=== PATIENT | female | born 1950 | race Caucasian/White ===

== ENCOUNTER → 2017-01-30 | Outpatient (CLI) | payer MEDICARE, OTHER ==
--- OUTSIDE RECORDS SUMMARY | 2017-01-30 12:30 | XMS REPORT | Continuity of Care Document ---
Author Author [facility] Organization [facility] Address Unknown Phone Unavailable Care Team Providers Care Survey Operations Director Name Role Phone Stacy Cid PCP [phone] Source Comments Some departments are not documenting in the electronic medical record. If you do not see the information that you expected, contact Release of Information in the Health Information Management department at [phone] for further assistance in locating additional records.[facility] Active Allergies and Adverse Reactions Allergen Noted Date Severity Reactions Comments Mold 08/22/2011 HIVES, RHINORRHEA, SHORTNESS OF BREATH, EDEMA Shellfish Containing 08/22/2011 HIVES, RHINORRHEA, Products SHORTNESS OF BREATH, EDEMA Current Medications Prescription Sig. Disp. Refills Start End Date Status Date rosuvastatin (CRESTOR) 10 Take 10 mg by mouth Active mg PO tablet daily. atenolol (TENORMIN) 25 mg Take 25 mg by mouth Active PO tablet daily. ASCORBATE CALCIUM Take by mouth. Active (VITAMIN C PO) MULTIVITAMIN (MULTIPLE Take by mouth. Active VITAMIN PO) meloxicam(+) (MOBIC) 7.5 Take 7.5 mg by mouth as Active mg PO tablet Needed. risedronate(+) (ACTONEL) Take 35 mg by mouth every Active 35 mg PO tablet 7 days. ERGOCALCIFEROL (VITAMIN Take 50,000 Units by Active D2) (VITAMIN D PO) mouth every 7 days. diphenhydrAMINE Take 25 mg by mouth every Active (BENADRYL) 25 mg PO 6 hours as needed. capsule budesonide/formoterol(+) Inhale 2 Puffs by mouth Active (SYMBICORT) 160/4.5 mcg twice daily. IN HFAA inhalation LEVALBUTEROL HCL (XOPENEX Inhale by mouth. Active IN) other medication 1 Dose. Pt states she Active takes "elations drink." other medication 1 Dose. Black Currant Active Seed Oil Active Problems Problem Noted Date Left breast Dermatitis-surgical 12/20/2010 Overview: DIAGNOSIS: Left breast localized skin lymphedema HISTORY: Odalys is a 60 year old female who was referred to clinic in August of 2011 for evaluation of a reddened edematous area of skin of the medial Left breast. She first noticed this at the end of December 2010 and shortly there after began experiencing the sensation of breast fullness and a "zapping" pain that radiated throughout the breast. This pain was non-localized and dispersed throughout the breast. This occurred twice daily and occurred everyday until early summer when she experienced a short duration of relief of symptoms. The fullness was constant and persists even today. She presented to her primary care physician in January and 01/30/11 a mammogram and sonogram were performed. These were both unremarkable. As the symptoms persisted she was referred to a surgeon on 03/26/11 and a punch biopsy of the right breast at the center of the redness was performed. The results revealed vascular ectasia, perivascular dermatitis, and focal interface dermatitis. After a brief period of symptom relief she began to experience the symptoms once again 07/2011. This was followed with similar symptoms of pain in the right breast without the erythema, and a recurrence of zoster symptom of the right lower thoracic region with sharp radiant pain from posterior to anterior. She was seen here and prescribed black current oil for treatment and since that time she has near total resolution all of her symptoms. Her zoster infection sxs resolved with anti-viral treatment. We had the skin biopsy slides reviewed here by our Dermatopathologist, Dr. Smallwood, and he reported just localized lymphedema. FAMILY HISTORY: Paternal grandmother- Breast cancer, Mother- Heart disease, Father- Heart disease, Sister x 2- HTN/DM, BARREL BUNG REMOVER AND DUMPER HISTORY: MC 1 FLB 21, Menarche 12 irregular, Menopause 48. Social History Tobacco Use Types Packs/Day Years Used Date Former Smoker Cigarettes 0.5 10 Quit: 11/19/1977 Smokeless Tobacco: Never Used Alcohol Use Drinks/Week oz/Week Comments Yes 4 Glasses of 2.4 wine Last Filed Vital Signs Vital Sign Reading Time Taken Blood Pressure 143/79 12/12/2011 1:03 PM RUG SHAMPOOER Pulse 76 12/12/2011 1:03 PM RUG SHAMPOOER Temperature 36.5 C (97.7 F) 12/12/2011 1:03 PM RUG SHAMPOOER Respiratory Rate - - Height 1.607 m (5' 3.25") 12/12/2011 1:03 PM RUG SHAMPOOER Weight 82.736 kg (182 lb 6.4 oz) 12/12/2011 1:03 PM RUG SHAMPOOER Body Mass Index 32.04 12/12/2011 1:03 PM RUG SHAMPOOER Oxygen Saturation - - Plan of Care Health Maintenance Due Date Last Done Comments Physical (Comprehensive) 1955 Exam Pertussis Vaccine 1959 Tetanus Vaccine 1965 Colorectal Cancer 1998 Screening Shingles Vaccine 2008 Breast Cancer Screening 08/22/2013 08/22/2011 Osteoporosis Screening 2013 Prevnar/Pneumovax (#1) 2013 Influenza Vaccine 07/20/2016 Results from Last 3 Months Not on file
--- NOTE | 2017-02-01 19:20 | Diagnostic Imaging Report ---
Bilateral screening mammogram. The current study was also evaluated with a Computer Aided Detection (CAD) system. INDICATION: Screening. No current complaints stated on the questionnaire. COMPARISON: 01/18/16. FINDINGS: The breasts are composed of scattered fibroglandular densities. There are benign-appearing calcifications seen. Allowing for technique and positional differences, no suspicious change is seen. IMPRESSION: No significant change. ACR BI-RADS Category 2: Benign findings. Result letter will be mailed to the patient. Note: At least 10% of breast cancer is not imaged by mammography. Dictated by: Dictated on workstation # [id number]
== END ==
LOC: RAD 12:28
PROVIDERS: ATTEND Internal Medicine
DX: Z12.31 Encounter for screening mammogram for malignant neoplasm of breast (principal)
CPT/HCPCS: 77067

== ENCOUNTER → 2017-05-18 | Outpatient (CLI) | payer MEDICARE, OTHER ==
--- NOTE | 2017-05-18 11:38 | Diagnostic Imaging Report ---
PROCEDURE: US Gallbladder. TECHNIQUE: Multiple real-time grayscale images were obtained over the right upper quadrant in various projections. INDICATION: Right upper quadrant pain. FINDINGS: The pancreas is obscured by bowel gas. The liver is fairly homogeneous but is hyperechoic and slightly attenuates the ultrasound beam. It is also slightly prominent in size measuring 18 CM in craniocaudad dimension. The portal vein has hepatopetal direction of flow. The gallbladder demonstrates a 7 mm hypoechoic structure along its wall suggestive of a polyp. There is no wall thickening or pericholecystic fluid. The CBD is 6 mm in caliber. The right kidney is 10.7 CM in length with no hydronephrosis or focal lesion. Sonographic Reyes sign is reportedly negative. IMPRESSION: 1. The liver size is at the upper limits of normal with suggestion of a fatty infiltration. 2. A 7 mm hyperechoic focus along the gallbladder wall is likely related to a polyp. Dictated by: Dictated on workstation # [id number]
== END ==
LOC: RAD 10:43
PROVIDERS: ATTEND Nurse Practitioner Family
DX: K87 Disorders of gallbladder, biliary tract and pancreas in diseases classified elsewhere (principal); R10.11 Right upper quadrant pain
CPT/HCPCS: 76705

== ENCOUNTER 2017-11-24 06:01 | Emergency (ER) | payer MEDICARE, OTHER ==
[~2017-11-24] VITALS: Ht 160 cm; Wt 77.1 kg
[2017-11-24] MEDS ORDERED: ROSU5TAB (06:23)
[2017-11-24] MEDS ORDERED: ALBU18HF2 (06:23)
[2017-11-24] MEDS ORDERED: BUDE10.2 (06:23)
[2017-11-24] MEDS ORDERED: METO-370 (06:23)
[2017-11-24 06:50] LABS: BASOPHILS % (AUTO) 0 % (0-10); EOSINOPHILS # (AUTO) 0.2 10^3/uL (0.0-0.3); EOSINOPHILS % (AUTO) 2 % (0-10); HEMATOCRIT 39 % (35-52); HEMOGLOBIN 13.6 G/DL (11.5-16.0); LYMPHOCYTES % (AUTO) 12 % (12-44); MEAN CORPUSCULAR HEMOGLOBIN 30 PG (25-34); MEAN CORPUSCULAR HGB CONC 35 G/DL (32-36); MEAN CORPUSCULAR VOLUME 86 FL (80-99); MEAN PLATELET VOLUME 8.8 FL (7.4-10.4); MONOCYTES # (AUTO) 0.6 X 10^3 (0.0-1.0); MONOCYTES % (AUTO) 6 % (0-12); NEUTROPHILS # (AUTO) 7.1 X 10^3 (1.8-7.8); NEUTROPHILS % (AUTO) 80 % (42-75); PLATELET COUNT 270 10^3/uL (130-400); RED BLOOD COUNT 4.48 10^6/uL (4.35-5.85); RED CELL DISTRIBUTION WIDTH 12.6 % (10.0-14.5); WHITE BLOOD COUNT 8.9 10^3/uL (4.3-11.0)
--- NOTE | 2017-11-24 06:57 | Diagnostic Imaging Report ---
INDICATION: Cough and congestion x5 days. TECHNIQUE: Single view chest 6:46 AM. CORRELATION STUDY: 02/20/2011 FINDINGS: The heart size, mediastinal configuration and pulmonary vascularity are within normal limits. The lungs are clear with no consolidating infiltrate. There is no significant effusion or pneumothorax. IMPRESSION: 1. Stable, negative portable chest. Dictated by: Dictated on workstation # [id number]
--- NOTE | 2017-11-24 07:13 | ED Cough/URI ---
General Chief Complaint: Cough/Cold/Flu Symptoms Stated Complaint: SOB,COUGHING,RUNNY NOSE Nursing Triage Note: PATIENT REPORTS COUGH SINCE SUNDAY, WITH FEVER STARTING THIS MORNING. PATIENT TOOK A TYLENOL ABOUT 0500 Source: patient Exam Limitations: no limitations History of Present Illness Time seen by provider: 07:09 Initial Comments The patient is a 67-year-old white female who presents with a complaint of harsh cough, fever, rhinitis since Sunday. She is concerned this is getting worse. She is slightly short of breath Timing/Duration: week, getting worse Severity/Quality: severe, productive cough Allergies and Home Medications Allergies Coded Allergies: Sulfa (Sulfonamide Antibiotics) (Verified Allergy, Unknown, 11/24/17) Home Medications Albuterol Sulfate 18 Gm Hfa.aer.ad, (Reported) Budesonide/Formoterol Fumarate 10.2 Gm Hfa.aer.ad, (Reported) Metoprolol Succinate 50 Mg Tab.er.24h, (Reported) Rosuvastatin Calcium 5 Mg Tablet, (Reported) Constitutional: see HPI EENTM: nose congestion Respiratory: cough, dyspnea on exertion, phlegm Cardiovascular: no symptoms reported Gastrointestinal: no symptoms reported Genitourinary: no symptoms reported Musculoskeletal: no symptoms reported Skin: no symptoms reported Psychiatric/Neurological: No Symptoms Reported Hematologic/Lymphatic: No Symptoms Reported Immunological/Allergic: no symptoms reported Past Vowsbmz-Kpdjve-Rfojwr Hx Patient Social History Alcohol Use: Denies Use Recreational Drug Use: No Smoking Status: Never a Smoker Recent Foreign Travel: No Contact w/Someone Who Travel: No Recent Infectious Disease Expo: No Physical Abuse: No Sexual Abuse: No Surgeries History of Surgeries: Yes (BACK, R KNEE, BREAST BIOPSY, COLON RESECTION) Surgeries: Adenoidectomy, Orthopedic, Tonsillectomy Respiratory History of Respiratory Disorde: Yes Respiratory Disorders: Asthma Cardiovascular History of Cardiac Disorders: Yes Cardiac Disorders: High Cholesterol, Hypertension Neurological History of Neurological Disord: No Genitourinary History of Genitourinary Disor: No Gastrointestinal History of Gastrointestinal Di: No Musculoskeletal History of Musculoskeletal Dis: No Endocrine History of Endocrine Disorders: No HEENT History of HEENT Disorders: No Cancer History of Cancer: No Psychosocial History of Psychiatric Problem: No Suicide Risk Score: 0 Blood Transfusions History of Blood Disorders: No Physical Exam Vital Signs Vital Sign - Last 12Hours 11/24/17 06:20 Temp 100.0 Pulse 95 Resp 18 B/P (MAP) 134/80 (98) Pulse Ox 94 Capillary Refill : Less Than 3 Seconds General Appearance: mild distress Eyes: Bilateral Eye Normal Inspection HEENT: normal ENT inspection Neck: non-tender Respiratory: chest non-tender, lungs clear, normal breath sounds, no respiratory distress, no accessory muscle use, respiratory distress Cardiovascular: normal peripheral pulses, regular rate, rhythm, no edema, no gallop, no JVD, no murmur Gastrointestinal: normal bowel sounds Extremities: normal range of motion, non-tender, normal inspection, no pedal edema, no calf tenderness, normal capillary refill, pelvis stable Neurologic/Psychiatric: 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 Skin: normal color Lymphatic: no adenopathy, axilla node tender (R), axilla node tender (L), inguinal node tender (R), inguinal node tender (L) Progress/Results/Core Measures Suspected Sepsis Recent Fever Within 48 Hours: No Infection Criteria Present: None New/Unexplained Altered Menta: No Sepsis Screen: No Definite Risk Sepsis Diagnosis: SIRS Temperature:100.0 Pulse: 95 Respiratory Rate: 18 Laboratory Tests 11/24/17 06:40: White Blood Count 8.9 Blood Pressure 134 /80 Mean: 98 Laboratory Tests 11/24/17 06:40: Creatinine 0.99, Platelet Count 270, Total Bilirubin 0.3 Results/Orders Lab Results Laboratory Tests Test 11/24/17 06:40 Range/Units White Blood Count 8.9 4.3-11.0 10^3/uL Red Blood Count 4.48 4.35-5.85 10^6/uL Hemoglobin 13.6 11.5-16.0 G/DL Hematocrit 39 35-52 % Mean Corpuscular Volume 86 80-99 FL Mean Corpuscular Hemoglobin 30 25-34 PG Mean Corpuscular Hemoglobin Concent 35 32-36 G/DL Red Cell Distribution Width 12.6 10.0-14.5 % Platelet Count 270 130-400 10^3/uL Mean Platelet Volume 8.8 7.4-10.4 FL Neutrophils (%) (Auto) 80 H 42-75 % Lymphocytes (%) (Auto) 12 12-44 % Monocytes (%) (Auto) 6 0-12 % Eosinophils (%) (Auto) 2 0-10 % Basophils (%) (Auto) 0 0-10 % Neutrophils # (Auto) 7.1 1.8-7.8 X 10^3 Lymphocytes # (Auto) 1.0 1.0-4.0 X 10^3 Monocytes # (Auto) 0.6 0.0-1.0 X 10^3 Eosinophils # (Auto) 0.2 0.0-0.3 10^3/uL Basophils # (Auto) 0.0 0.0-0.1 10^3/uL Sodium Level 138 135-145 MMOL/L Potassium Level 4.3 3.6-5.0 MMOL/L Chloride Level 105 98-107 MMOL/L Carbon Dioxide Level 23 21-32 MMOL/L Anion Gap 10 5-14 MMOL/L Blood Urea Nitrogen 16 7-18 MG/DL Creatinine 0.99 0.60-1.30 MG/DL Estimat Glomerular Filtration Rate 56 BUN/Creatinine Ratio 16 Glucose Level 111 H 70-105 MG/DL Calcium Level 9.0 8.5-10.1 MG/DL Total Bilirubin 0.3 0.1-1.0 MG/DL Aspartate Amino Transf (AST/SGOT) 28 5-34 U/L Alanine Aminotransferase (ALT/SGPT) 34 0-55 U/L Alkaline Phosphatase 82 40-136 U/L Total Protein 7.0 6.4-8.2 GM/DL Albumin 4.1 3.2-4.5 GM/DL My Orders Orders - JENA PALACIOS MD Cbc No Diff (11/24/17 06:33) Cbc With Automated Diff (11/24/17 06:33) Comprehensive Metabolic Panel (11/24/17 06:33) Chest 1 View, Ap/Pa Only (11/24/17 06:33) Vital Signs/I&O Vital Sign - Last 12Hours 11/24/17 06:20 Temp 100.0 Pulse 95 Resp 18 B/P (MAP) 134/80 (98) Pulse Ox 94 Capillary Refill : Less Than 3 Seconds Blood Pressure Mean: 98 Departure Impression Impression: Primary Impression: Influenza-like symptoms Disposition: 01 HOME, SELF-CARE Condition: Stable/Unchanged Departure-Patient Inst. Decision time for Depature: 07:22 Referrals: SANKET CHAN MD (PCP/Family) Primary Care Physician Patient Instructions: Flu, Adult (DC) Add. Discharge Instructions: All discharge instructions reviewed with patient and/or family. Voiced understanding. Treatment is empiric. Lots of liquids and fruit juices. Extra rest. Nasal steroid may be useful. A prescription for Phenergan with codeine has been provided. Scripts Codeine Phosphate/Guaifenesin (Guaifen-Codeine 200-20 mg/10Ml) 10 Ml Liquid 10 ML PO QID, #200 EA Prov: JENA PALACIOS MD 11/24/17 JENA PALACIOS MD Nov 24, 2017 07:13
[2017-11-24 07:18] LABS: ALBUMIN 4.1 GM/DL (3.2-4.5); BILIRUBIN,TOTAL 0.3 MG/DL (0.1-1.0); CREATININE SERUM 0.99 MG/DL (0.60-1.30); POTASSIUM 4.3 MMOL/L (3.6-5.0)
[2017-11-24] MEDS ORDERED: CODE10LI PO (07:25)
[2017-11-24 07:42] VITALS: BP 134/80
== END 2017-11-24 07:42 | disposition home or self-care (01) ==
LOC: EDUNIT# 06:01 → ER 06:03
DX: J11.1 Influenza due to unidentified influenza virus with other respiratory manifestations (principal); E78.00 Pure hypercholesterolemia, unspecified; I10 Essential (primary) hypertension; J45.909 Unspecified asthma, uncomplicated; Z90.89 Acquired absence of other organs
CPT/HCPCS: 36415; 71045; 80053; 85025; 85027; 99282

== ENCOUNTER → 2018-03-04 | Outpatient (CLI) | payer MEDICARE, OTHER ==
[~2018-03-04] MED LIST: ALBU18HF2; BUDE10.2; CODE10LI PO; METO-370; ROSU5TAB
--- NOTE | 2018-03-04 12:21 | Diagnostic Imaging Report ---
INDICATION: Routine screening. COMPARISON: 01/30/2017 and 01/18/2016. TECHNIQUE: Screening digital mammography was performed bilaterally with a Computer Aided Detection (CAD) system. 3D tomographic images were obtained and reviewed. FINDINGS: Scattered fibroglandular densities are identified bilaterally. No dominant mass or malignant-appearing microcalcifications are seen. Benign calcification in the lower inner right breast is again noted. The axillae are unremarkable. IMPRESSION: No mammographic features suspicious for malignancy are identified. ACR BI-RADS Category 2: Benign findings. Result letter will be mailed to the patient. Note: At least 10% of breast cancer is not imaged by mammography. Dictated by: Dictated on workstation # [id number]
== END ==
LOC: RAD 10:29
PROVIDERS: ATTEND Internal Medicine
DX: Z12.31 Encounter for screening mammogram for malignant neoplasm of breast (principal)
CPT/HCPCS: 77067

== ENCOUNTER → 2019-03-11 | Outpatient (CLI) | payer MEDICARE, OTHER ==
--- NOTE | 2019-03-11 12:54 | Diagnostic Imaging Report ---
INDICATION: Routine screening. Comparison is made with prior mammogram from 03/04/2018 and 01/30/2017. 2-D and 3-D bilateral screening mammography was performed with a Computer Aided Detection (CAD) system. FINDINGS: Scattered fibroglandular densities are identified bilaterally. The parenchymal pattern is stable. No mass or malignant appearing microcalcifications are seen. Axillae are unremarkable. There are benign calcifications. IMPRESSION: No mammographic features suspicious for malignancy are identified. ACR BI-RADS Category 2: Benign findings. Result letter will be mailed to the patient. Note: At least 10% of breast cancer is not imaged by mammography. Dictated by: Dictated on workstation # [id number]
== END ==
LOC: RAD 10:00
PROVIDERS: ATTEND Internal Medicine
DX: Z12.31 Encounter for screening mammogram for malignant neoplasm of breast (principal)
CPT/HCPCS: 77067

== ENCOUNTER 2019-07-07 05:47 | Outpatient (CLI) | payer MEDICARE, OTHER ==
[~2019-07-07] VITALS: Ht 160 cm; Wt 80.7 kg
[~2019-07-07 05:47] MED LIST changes: -ALBU18HF2; +ALBU18HF2 IH; -BUDE10.2; +BUDE10.2 IH; -METO-370; +METO-370 PO; -ROSU5TAB; +ROSU5TAB PO
[2019-07-07] MEDS ORDERED: CA C PO (12:33)
[2019-07-07] MEDS ORDERED: UBID200C16 PO (12:33)
[2019-07-07] MEDS ORDERED: DIPH25CA79 PO (12:33)
[2019-07-07] MEDS ORDERED: LORA10TA76 PO (12:33)
== END 2019-07-07 12:35 | disposition home or self-care (01) ==
LOC: PREOP 05:47
PROVIDERS: ATTEND Internal Medicine
DX: Z01.818 Encounter for other preprocedural examination (principal)

== ENCOUNTER 2019-07-11 07:19 | Day surgery (SDC) | payer MEDICARE, OTHER ==
[~2019-07-11] VITALS: Ht 160 cm; Wt 80.7 kg
[2019-07-11] VITALS (10 sets, daily range): BP systolic 137–178; BP diastolic 67–84
[~2019-07-11 07:19] MED LIST changes: +CA C PO; +DIPH25CA79 PO; +LORA10TA76 PO; +UBID200C16 PO
[2019-07-11] MEDS ORDERED: D5 LR IV SOLUTION 1,000 ML IV STA (07:24)
[2019-07-11] MEDS ORDERED: fentaNYL INJECTION 100 MCG/2 ML AMP IVP ONE (07:30)
[2019-07-11] MEDS ORDERED: MIDAZOLAM 2 MG/2 ML (VERSED) VIAL IVP ONE (07:30)
[2019-07-11] MEDS ORDERED: LIDOCAINE JELLY 2% 6 ML SYRINGE MM PRN (07:30)
[2019-07-11] MEDS ORDERED: LIDOCAINE JELLY 2% 6 ML SYRINGE ONE (07:50)
[2019-07-11] MEDS ORDERED: fentaNYL INJECTION 100 MCG/2 ML AMP ONE (07:50)
[2019-07-11] MEDS ORDERED: MIDAZOLAM 2 MG/2 ML (VERSED) VIAL ONE ×2 (07:51)
--- NOTE | 2019-07-11 08:01 | Pre-Op Note & Conscious Sedat ---
Pre-Operative Progress Note H&P Reviewed The H&P was reviewed, patient examined and no changes noted. Date H&P Reviewed: Jul 11, 2019 Time H&P Reviewed: 07:45 Conscious Sedation Pre-Proced ASA Score 2 For ASA 3 and 4: Consider anesthesia and medical clearance. Also, for patients with a history of failed moderate sedation consider anesthesia. Airway Lungs Heart ASA score ASA 1: a normal healthy patient ASA 2: a patient with a mild systemic disease (mid diabetes, controlled hypertension, obesity ASA 3: a patient with a severe systemic disease that limits activity (angina, COPD, prior Myocardial infarction) ASA 4: a patient with an incapacitating disease that is a constant threat to life (CHF, renal failure) ASA 5: a moribund patient not expected to survive 24 hrs. (ruptured aneurysm) ASA 6: a declared brain- patient whose organs are being harvested. For emergent operations, add the letter E after the classification Mallampati Classification Grade 2 Sedation Plan Analgesia, Amnesia, Plan communicated to team members, Discussed options with patient/fam, Discussed risks with patient/fam The patient is an appropriate candidate to undergo the planned procedure, sedation, and anesthesia. The patient immediately re-assessed prior to indication. SANKET CHAN MD Jul 11, 2019 08:01
--- NOTE | 2019-07-11 15:04 | OPERATIVE REPORT ---
DATE OF SERVICE: 07/11/2019 COLONOSCOPY SUMMARY INDICATION FOR THE PROCEDURE: Screening colonoscopy. The patient was placed in the left lateral decubitus position. Prior to undergoing colonoscopy, digital rectal evaluation was performed. Anal sphincter tone was normal and the perianal reflex was intact. No abnormalities were noted on digital inspection of the anal canal or distal rectal vault. The colonoscope was then inserted into the rectum and under direct visualization advanced to the cecum. The cecum was identified by identification of the ileocecal valve and cecal strap. Photographic documentation was obtained. A careful inspection was made as the colonoscope was withdrawn. Quality of the prep was good. FINDINGS: There was no evidence for internal or external hemorrhoids and the rectum was unremarkable except for one small 2 mm sessile polyp that was photographed and biopsied and ablated with minimal blood loss. Small to medium size diverticulum were scattered throughout the colon, most notable in the sigmoid colon and a previous anastomotic margin noted in the distal sigmoid colon is present and intact unremarkable. Other than scattered diverticula in the descending colon, transverse colon, ascending colon and cecum were unremarkable. ASSESSMENT: Diminutive polyp was removed from the proximal rectum with no other evidence for neoplasia. Mild to moderate diverticular disease persists, scattered throughout the colon with no evidence for diverticulitis. I would advocate consideration for repeat surveillance colonoscopy in 10 years as long as there are no surprises on histopathology report. Job ID: [id number] DocumentID: [id number] Dictated Date: 07/11/2019 11:09:20 Publications Editor Date: 07/11/2019 15:02:29 Dictated By: SANKET CHAN MD
--- NOTE | 2019-07-16 14:53 | HISTORY AND PHYSICAL ---
DATE OF SERVICE: 07/11/2019 COLONOSCOPY HISTORY AND PHYSICAL HISTORY OF PRESENT ILLNESS: The patient is a 68-year-old white female who was seen in followup of allergic rhinitis and asthma on 06/12/2019. She reports that course of prednisone helped her asthma out significantly. She has been off it for the last several weeks and asthma and allergic symptoms have been under reasonable control. When she went to [place], she was stepping off the plane, she noted improvement in her symptoms with exacerbation as soon as she got back, but symptoms have been under reasonable control. She will use her rescue inhaler once daily and continuous steroid inhaler use on a regular basis with tolerable symptoms. She is also on Claritin. She noted that she had one previous colonoscopy, but it was likely 14 years ago around 2004. She did not have any polyps noted. She is not aware of any family history for colon cancer or colon polyps. PHYSICAL EXAMINATION: GENERAL: Revealed a white female who did not appear to be in acute distress. VITAL SIGNS: Weight was down 3.2 pounds from six weeks ago. Blood pressure 142/80. HEENT: Unremarkable. Sclerae nonicteric. She has a Mallampati class 2 pharyngeal configuration. CHEST: Clear to auscultation. CARDIOVASCULAR: Reveals a regular rate and rhythm without murmur, S3 or S4. ABDOMEN: Soft, supple without mass, organomegaly or tenderness. EXTREMITIES: Reveal no cyanosis, clubbing or edema. ASSESSMENT AND PLAN: 1. Allergic rhinitis as well as asthma with strong allergic component under reasonable control. Discussed that suspect graft/weed pollens were likely a biggest factor. We will continue current antihistamine and anti-inflammatory inhalational therapy. 2. Rationale for repeat screening colonoscopy was discussed. The patient was set up for the July 11. 3. Prep instructions for the Craft-prep kit were given and questions were answered. We will have the patient to follow up in 4 months and give flu shot at that time. Job ID: [id number] DocumentID: [id number] Dictated Date: 06/12/2019 11:06:28 Keying Machine Operator Date: 06/12/2019 11:19:24 Dictated By: SANKET CHAN MD <Dictated by SANKET CHAN MD> <Electronically signed by SANKET CHAN MD> 06/12/19 [id number]
== END 2019-07-11 09:30 | disposition home or self-care (01) ==
LOC: ENDO 07:19
PROVIDERS: ATTEND Internal Medicine
DX: Z12.11 Encounter for screening for malignant neoplasm of colon (principal); D12.8 Benign neoplasm of rectum; K57.30 Diverticulosis of large intestine without perforation or abscess without bleeding; J45.909 Unspecified asthma, uncomplicated; Z98.0 Intestinal bypass and anastomosis status; Z88.2 Allergy status to sulfonamides; Z79.899 Other long term (current) drug therapy
CPT/HCPCS: 88305

== ENCOUNTER → 2020-04-06 | Outpatient (CLI) | payer MEDICARE, OTHER ==
[~2020-04-06] MED LIST changes: -METO-370 PO; +METO50TA7 PO
--- NOTE | 2020-04-06 12:33 | Diagnostic Imaging Report ---
INDICATION: Routine screening. COMPARISON: 03/11/2019 and 03/04/2018. TECHNIQUE: 2D and 3D bilateral screening mammography was performed with CAD. FINDINGS: Scattered fibroglandular densities are identified bilaterally. There are benign calcifications in both breasts. No mass or malignant appearing microcalcifications are seen. The axillae are unremarkable. IMPRESSION: No mammographic features suspicious for malignancy are identified. ACR BI-RADS Category 2: Benign findings. Result letter will be mailed to the patient. Note: At least 10% of breast cancer is not imaged by mammography. Dictated by: Dictated on workstation # [id number]
== END ==
LOC: RAD 09:04
PROVIDERS: ATTEND Internal Medicine
DX: Z12.31 Encounter for screening mammogram for malignant neoplasm of breast (principal)
CPT/HCPCS: 77063; 77067

== ENCOUNTER 2020-11-23 22:45 | Emergency (ER) | payer MEDICARE, OTHER ==
[~2020-11-23] VITALS: Ht 162.6 cm; Wt 80.9 kg
[2020-11-23] MEDS ORDERED: ORPHENADRINE 60 MG/2 ML (NORFLEX) AMP (ED ONLY) IM ONE (23:45)
[2020-11-23] MEDS ORDERED: KETOROLAC 30 MG/ML VIAL IM ONE (23:45)
--- NOTE | 2020-11-23 23:51 | ED Neck-Back Pain/Injury ---
General Chief Complaint: Head/Cervical Problems Stated Complaint: NECK PAIN Nursing Triage Note: PT AMBULATES TO ROOM #5 WITH C/O L SUPERIOR NECK DISCOMFORT. DESCRIBES DISCOMFORT "SPASMS." REPORTS HEADACHE ON THIS DAY THAT WAS RELIEVED BY TYLENOL. DENIES FEVER OR CHILLS. A&OX4. Nursing Sepsis Screen: No Definite Risk Source of Information: Patient Exam Limitations: No Limitations History of Present Illness Date Seen by Provider: Nov 23, 2020 Time Seen by Provider: 23:35 Initial Comments Patient is a 70-year-old female who presents to the emergency department today with a chief complaint of occipital headache and some neck pain. Patient states that she had neck pain about 3 weeks ago after she slept wrong. She states after 3 or 4 days of using heat and ice, the pain subsided on its own. Patient states that she awoke with similar symptoms this morning. She states it hurts when she turns her head to the left. Patient points to the area of the suboccipital region as well as mid paraspinous musculature. Patient also states that the headache went away with some Tylenol early this morning but came back about mid afternoon. She denies any vision changes speech difficulties unilateral numbness, weakness or tingling. Patient denies any recent febrile illnesses, cough, congestion, URI symptoms or Covid complaints. No GI or concerns. Patient states she always has a little bit of swelling in her lower extremities at the end of the day. This is not unusual for her. Patient states that she was recently taken off of her antihypertensive medic ations but she still has them at home. She states she was placed on medication for Lexapro for anxiety and this seemed to alleviate her need for antihypertensives. She checked her blood pressure off and on for 2 to 3 weeks after coming off the Lexapro and it stayed down however today her blood pressure is up in the 190 systolic range. She believes this is due to the pain in her neck. All other review of systems reviewed and negative except as stated above. Location: C-Spine Timing/Duration: 12 Hours Severity: Moderate Pain/Injury Location: Neck Method of Injury: Unknown Modifying Factors: Improves With Cold Therapy, Improves With Immobilization; Worse With Movement Associated Symptoms: muscle spasms Allergies and Home Medications Allergies Coded Allergies: Sulfa (Sulfonamide Antibiotics) (Verified Allergy, Unknown, 11/24/17) Home Medications Albuterol Sulfate 18 Gm Hfa.aer.ad, 2 PUFF IH Q4H PRN for SHORTNESS OF BREATH, (Reported) Budesonide/Formoterol Fumarate 10.2 Gm Hfa.aer.ad, 2 PUFF IH BID, (Reported) Ca Carb/Soyb Xt/Flax/Blk Coh 1 Each Tablet.er, 1 EACH PO DAILY, (Reported) Cyclobenzaprine HCl 5 Mg Tablet, 5 MG PO Q8H PRN for muscle spasm Prescribed by: KARTHIKEYAN ELLIS on 11/23/20 8671 Diphenhydramine HCl 25 Mg Capsule, 25 MG PO HS, (Reported) Loratadine 10 Mg Tablet, 10 MG PO DAILY, (Reported) Metoprolol Succinate 50 Mg Tab.er.24h, 25 MG PO HS, (Reported) take 1/2 of 50mg tab Rosuvastatin Calcium 5 Mg Tablet, 2.5 MG PO HS, (Reported) take 1/2 of 5mg tab Ubidecarenone 200 Mg Capsule, 200 MG PO DAILY, (Reported) Patient Home Medication List Home Medication List Reviewed: Yes Review of Systems Constitutional: see HPI EENTM: no symptoms reported Respiratory: no symptoms reported Cardiovascular: no symptoms reported Gastrointestinal: no symptoms reported Genitourinary: no symptoms reported : No Musculoskeletal: muscle pain, muscle stiffness, muscle cramps (Neck), neck pain Skin: no symptoms reported All Other Systems Reviewed Negative Unless Noted: Yes Past Wdsasqe-Tnoefa-Wnttdd Hx Patient Social History Alcohol Use: Denies Use Recreational Drug Use: No Smoking Status: Never a Smoker 2nd Hand Smoke Exposure: No Recent Foreign Travel: No Contact w/Someone Who Travel: No Recent Infectious Disease Expo: No Recent Hopitalizations: No Immunizations Up To Date Tetanus Booster (TDap): Unknown Date of Pneumonia Vaccine: Jul 07, 2017 Seasonal Allergies Seasonal Allergies: Yes Past Medical History Surgeries: Yes (BACK, R KNEE, BREAST BIOPSY, COLON RESECTION) Adenoidectomy, Orthopedic, Tonsillectomy Respiratory: Yes (REACTIVE AIRWAY ) Asthma Currently Using CPAP: No Currently Using BIPAP: No Cardiac: Yes High Cholesterol, Hypertension Neurological: No Female Reproductive Disorders: Denies Sexually Transmitted Disease: No HIV/AIDS: No Genitourinary: No Gastrointestinal: No Musculoskeletal: No Endocrine: No HEENT: No Cancer: No Psychosocial: No Integumentary: No Blood Disorders: No Physical Exam Vital Signs Vital Signs - First Documented 11/23/20 22:55 Temp 36.4 Pulse 73 Resp 18 B/P (MAP) 190/100 (130) Pulse Ox 97 O2 Delivery Room Air Capillary Refill : Less Than 3 Seconds Height, Weight, BMI Height: 5'3.00" Weight: 178lbs. 0.0oz. [id number]; 30.00 BMI Method:Stated General Appearance: No Apparent Distress, WD/WN Neck: Limited Range of Motion, Tender Lateral (Left lateral) Cardiovascular: Regular Rate, Rhythm, No Murmur Respiratory: Lungs Clear, Normal Breath Sounds, No Accessory Muscle Use, No Respiratory Distress Gastrointestinal: Normal Bowel Sounds, Non Tender, Soft Extremity: Normal Inspection, Normal Range of Motion, Non Tender, No Calf Tenderness, No Pedal Edema Neurologic/Psychiatric: Alert, Oriented x3, No Motor/Sensory Deficits, Normal Mood/Affect, liquid sugar fortifier II-XII Norm as Tested Skin: Normal Color, Warm/Dry Progress/Results/Core Measures Results/Orders My Orders Orders - KARTHIKEYAN ELLIS MD Orphenadrine Inj (Ed Only) (Norflex Inje (11/23/20 23:45) Ketorolac Injection (Toradol Injection) (11/23/20 23:45) Medications Given in ED Current Medications Medications Dose Ordered Sig/Tejas Route Start Time Stop Time Status Last Admin Dose Admin Ketorolac Tromethamine 15 mg ONCE ONCE IM 11/23/20 23:45 11/23/20 23:46 DC 11/23/20 23:54 15 MG Orphenadrine Citrate 60 mg ONCE ONCE IM 11/23/20 23:45 11/23/20 23:46 DC 11/23/20 23:54 60 MG Vital Signs/I&O 11/23/20 11/24/20 22:55 00:29 Temp 36.4 36.4 Pulse 73 63 Resp 18 17 B/P (MAP) 190/100 (130) 164/85 (130) Pulse Ox 97 97 O2 Delivery Room Air Room Air Blood Pressure Mean: 130 Progress Progress Note : Time: 00:15 Progress Note Patient is feeling much better. Blood pressures down to 160 systolic. She is comfortable going home with muscle relaxers. Patient will continue to alternate heat and ice to her neck. She will follow-up with her primary care physician tomorrow. Departure Impression Primary Impression: Cervicalgia of mxzkzfiz-eetwkzi-nngmf region Disposition: 01 HOME, SELF-CARE Condition: Stable Departure-Patient Inst. Decision time for Depature: 00:25 Referrals: SANKET CHAN MD (PCP/Family) Primary Care Physician Patient Instructions: Generalized Neck Pain (DC) Add. Discharge Instructions: Alternate heat and ice to the muscles of your neck to relieve spasm. I have given you a prescription for some muscle relaxers. Please use these as needed up to 3 times daily. Take veoy-ymy-ljkquaa ibuprofen 3 tablets, 600 mg, every 6-8 hours with food as needed for pain. Please call and follow-up with your primary care physician tomorrow regarding your elevated blood pressure. Return to the emergency room for any worsening symptoms, new concerns or emergent complaints. Scripts Cyclobenzaprine HCl (Cyclobenzaprine HCl) 5 Mg Tablet 5 MG PO Q8H PRN for muscle spasm, #20 TAB Prov: KARTHIKEYAN ELLIS MD 11/23/20 KARTHIKEYAN ELLIS MD Nov 23, 2020 23:51
[2020-11-23] MEDS ORDERED: CYCL5TAB PO (23:52)
[2020-11-24 00:29] VITALS: BP 164/85
== END 2020-11-24 00:29 | disposition home or self-care (01) ==
LOC: EDUNIT# 22:45 → ER 22:46
DX: M54.2 Cervicalgia (principal); I10 Essential (primary) hypertension; E78.00 Pure hypercholesterolemia, unspecified; J45.909 Unspecified asthma, uncomplicated; Z88.2 Allergy status to sulfonamides; Z79.51 Long term (current) use of inhaled steroids; X50.1XXA Overexertion from prolonged static or awkward postures, initial encounter
CPT/HCPCS: 99284

== ENCOUNTER → 2021-04-07 | Outpatient (CLI) | payer MEDICARE, OTHER ==
[~2021-04-07] MED LIST changes: +CYCL5TAB PO
--- NOTE | 2021-04-07 13:15 | Diagnostic Imaging Report ---
INDICATION: Routine screening. COMPARISON is made with prior mammograms from 04/06/2020 and 03/11/2019. 2-D and 3-D bilateral screening mammography was performed with CAD. Scattered fibroglandular densities are identified bilaterally. Benign calcifications are again noted. No mass or malignant appearing microcalcifications are seen. Axillae are unremarkable. IMPRESSION: BI-RADS Category 2 No mammographic features suspicious for malignancy are identified. ACR BI-RADS Category 2: Benign findings. Result letter will be mailed to the patient. Note: At least 10% of breast cancer is not imaged by mammography. Dictated by: Dictated on workstation # [id number]
== END ==
LOC: RAD 11:15
PROVIDERS: ATTEND Internal Medicine
DX: Z12.31 Encounter for screening mammogram for malignant neoplasm of breast (principal)
CPT/HCPCS: 77063; 77067

== ENCOUNTER → 2022-04-18 | Outpatient (CLI) | payer MEDICARE, OTHER ==
--- NOTE | 2022-04-18 14:34 | Diagnostic Imaging Report ---
INDICATION: Routine screening. COMPARISON: 04/07/2021 and 04/06/2020. TECHNIQUE: 2D and 3D bilateral screening mammography was performed with CAD. FINDINGS: Scattered fibroglandular densities are identified bilaterally. The parenchymal pattern is stable. No mass or malignant-appearing microcalcifications are seen. The axillae are unremarkable. IMPRESSION: No mammographic features suspicious for malignancy are identified. ACR BI-RADS Category 1: Negative. Result letter will be mailed to the patient. Note: At least 10% of breast cancer is not imaged by mammography. Dictated by: Dictated on workstation # [id number]
== END ==
LOC: RAD 10:21
PROVIDERS: ATTEND Internal Medicine
DX: Z12.31 Encounter for screening mammogram for malignant neoplasm of breast (principal)
CPT/HCPCS: 77063; 77067

== ENCOUNTER → 2022-10-18 | Outpatient (RCR) | payer MEDICARE, OTHER | END | disposition home or self-care (01) | PROVIDERS: ATTEND Orthopaedic Surgery | DX: Z47.1 Aftercare following joint replacement surgery (principal); J45.909 Unspecified asthma, uncomplicated; K21.9 Gastro-esophageal reflux disease without esophagitis; Z96.651 Presence of right artificial knee joint ==

== ENCOUNTER 2022-11-16 15:11 | Outpatient (RCR) | payer MEDICARE, OTHER | END 2022-11-17 12:01 | disposition home or self-care (01) | PROVIDERS: ATTEND Orthopaedic Surgery | DX: Z47.1 Aftercare following joint replacement surgery (principal); J45.909 Unspecified asthma, uncomplicated; K21.9 Gastro-esophageal reflux disease without esophagitis; Z96.651 Presence of right artificial knee joint ==

== ENCOUNTER → 2023-05-18 | Outpatient (CLI) | payer MEDICARE, OTHER ==
--- NOTE | 2023-05-18 15:24 | Diagnostic Imaging Report ---
Indication: Routine screening. Comparison is made with prior mammograms from 04/18/2022 and 04/07/2021. 2-D and 3-D bilateral screening mammography was performed with CAD. Both breasts are heterogeneously dense, limiting the sensitivity of mammography. The parenchymal pattern is stable. No mass or malignant-appearing microcalcifications are seen. Axillae are unremarkable. IMPRESSION: BI-RADS Category 1 No mammographic features suspicious for malignancy are identified. ACR BI-RADS Category 1: Negative. Result letter will be mailed to the patient. Note: At least 10% of breast cancer is not imaged by mammography. Dictated by: Dictated on workstation # [id number]
== END ==
LOC: RAD 10:33
PROVIDERS: ATTEND Internal Medicine
DX: Z12.31 Encounter for screening mammogram for malignant neoplasm of breast (principal)
CPT/HCPCS: 77063; 77067

== ENCOUNTER 2023-10-22 13:48 | Emergency (ER) | payer MEDICARE, OTHER ==
[~2023-10-22] VITALS: Ht 162 cm; Wt 80.9 kg
[2023-10-22] MEDS ORDERED: ONDANSETRON INJECTION 4 MG/2 ML (SDV) IVP ONE (14:00)
[2023-10-22] MEDS ORDERED: ONDANSETRON INJECTION 4 MG/2 ML (SDV) ONE (14:00)
[2023-10-22 14:06] LABS: BASOPHILS % (AUTO) 0 % (0-10); EOSINOPHILS # (AUTO) 0.1 10^3/uL (0.0-0.3); EOSINOPHILS % (AUTO) 2 % (0-10); HEMATOCRIT 41 % (35-52); HEMOGLOBIN 13.5 g/dL (11.5-16.0); LYMPHOCYTES # (AUTO) 2.5 10^3/uL (1.0-4.0); LYMPHOCYTES % (AUTO) 40 % (12-44); MEAN CORPUSCULAR HEMOGLOBIN 31 pg (25-34); MEAN CORPUSCULAR HGB CONC 33 g/dL (32-36); MEAN CORPUSCULAR VOLUME 96 fL (80-99); MEAN PLATELET VOLUME 9.1 fL (9.0-12.2); MONOCYTES # (AUTO) 0.4 10^3/uL (0.0-1.0); MONOCYTES % (AUTO) 6 % (0-12); NEUTROPHILS # (AUTO) 3.3 10^3/uL (1.8-7.8); NEUTROPHILS % (AUTO) 52 % (42-75); PLATELET COUNT 386 10^3/uL (130-400); WHITE BLOOD COUNT 6.4 10^3/uL (4.3-11.0)
[2023-10-22 14:18] LABS: ALBUMIN 3.7 GM/DL (3.2-4.5)
[2023-10-22 14:19] LABS: POTASSIUM 3.9 MMOL/L (3.6-5.0)
[2023-10-22 14:20] LABS: CALCIUM 8.7 MG/DL (8.5-10.1)
[2023-10-22 14:23] LABS: BILIRUBIN,TOTAL 0.3 MG/DL (0.1-1.0)
[2023-10-22 14:25] LABS: CREATININE SERUM 0.98 MG/DL (0.60-1.30)
[2023-10-22 14:28] LABS: MAGNESIUM 2.2 MG/DL (1.6-2.4)
--- NOTE | 2023-10-22 17:21 | ED General ---
General Chief Complaint: Allergic Reaction Stated Complaint: ALLERGIC REACTION Nursing Triage Note: PT TO RM 2 BY [facility] WITH C/O POSS ALLERGIC REACTION AT THE DENTIST. PT GIVEN LIDO, ARODICANE AND AMOX AT THE OFFICE Source of Information: Patient History of Present Illness Date Seen by Provider: Oct 22, 2023 Time Seen by Provider: 13:57 Allergies and Home Medications Allergies Coded Allergies: amoxicillin (Verified Allergy, Severe, Anaphylaxis, 10/22/23) lidocaine (Verified Allergy, Severe, Anaphylaxis, 10/22/23) Sulfa (Sulfonamide Antibiotics) (Verified Allergy, Unknown, 11/24/17) Patient Home Medication List Home Medication List Reviewed: Yes Albuterol Sulfate (Ventolin Hfa) 18 Gm Hfa.aer.ad, 2 PUFF IH Q4H PRN for SHORTNESS OF BREATH, (Reported) Entered as Reported by: AUSTIN GIBSON on 11/24/17 0623 Budesonide/Formoterol Fumarate (Symbicort 160-4.5 Mcg Inhaler) 10.2 Gm Hfa.aer.ad, 2 PUFF IH BID, (Reported) Entered as Reported by: AUSTIN GIBSON on 11/24/17 0623 Ca Carb/Soyb Xt/Flax/Blk Coh (Black Lhkfoj-Cbiadncn-Pak Cplt) 1 Each Tablet.er, 1 EACH PO DAILY, (Reported) Entered as Reported by: BUDDY VASQUEZ on 07/07/19 1233 Cyclobenzaprine HCl (Cyclobenzaprine HCl) 5 Mg Tablet, 5 MG PO Q8H PRN for muscle spasm Prescribed by: KARTHIKEYAN ELLIS on 11/23/20 2352 Diphenhydramine HCl (Benadryl) 25 Mg Capsule, 25 MG PO HS, (Reported) Entered as Reported by: BUDDY VASQUEZ on 07/07/19 1233 Epinephrine (Epipen 2-Joseph) 0.3 Mg/0.3 Ml Auto.injct, 0.3 MG IJ UD Prescribed by: IRMA CANNON on 10/22/23 1825 Loratadine (Claritin) 10 Mg Tablet, 10 MG PO DAILY, (Reported) Entered as Reported by: BUDDY VASQUEZ on 07/07/19 1233 Metoprolol Succinate (Metoprolol Succinate) 50 Mg Tab.er.24h, 25 MG PO HS, (Reported) Entered as Reported by: AUSTIN GIBSON on 11/24/17 0623 Rosuvastatin Calcium (Crestor) 5 Mg Tablet, 2.5 MG PO HS, (Reported) Entered as Reported by: AUSTIN GIBSON on 11/24/17622 Ubidecarenone (Co Q-10) 200 Mg Capsule, 200 MG PO DAILY, (Reported) Entered as Reported by: BUDDY VASQUEZ on 07/07/19 1233 Past Cdenruw-Q[place]-Dusmug Hx Patient Social History Tobacco Use?: No Use of E-Cig and/or Vaping dev: No Substance use?: No Additional substance use comme: CBD OIL Alcohol Use?: Yes Alcohol Frequency: Once in a while Pt feels they are or have been: No Immunizations Up To Date Tetanus Booster (TDap): Unknown Influenza Vaccine Up-to-Date: Yes; Up-to-Date Seasonal Allergies Seasonal Allergies: Yes Past Medical History Surgery/Hospitalization HX: HLD, ASTHMA R TOTAL KNEE Surgeries: Yes (BACK, R KNEE, BREAST BIOPSY, COLON RESECTION) Adenoidectomy, Orthopedic, Tonsillectomy Respiratory: Yes (REACTIVE AIRWAY ) Asthma Currently Using CPAP: No Currently Using BIPAP: No Cardiac: Yes High Cholesterol, Hypertension Neurological: No Female Reproductive Disorders: Denies Sexually Transmitted Disease: No HIV/AIDS: No Genitourinary: No Gastrointestinal: No Musculoskeletal: No Endocrine: No HEENT: No Cancer: No Psychosocial: No Integumentary: No Blood Disorders: No Physical Exam Vital Signs Vital Signs - First Documented 10/22/23 13:50 Temp 35.0 Pulse 72 Resp 20 B/P (MAP) 117/86 (96) Pulse Ox 94 O2 Delivery Room Air Capillary Refill : Height, Weight, BMI Height: 5'3.00" Weight: 178lbs. 0.0oz. 80.912359xb; 30.00 BMI Method:Stated Progress/Results/Core Measures Suspected Sepsis SIRS Temperature: Pulse: 72 Respiratory Rate: 20 Laboratory Tests 10/22/23 13:50: White Blood Count 6.4 Blood Pressure 117 /86 Mean: 96 Laboratory Tests 10/22/23 13:50: Creatinine 0.98, Platelet Count 386, Total Bilirubin 0.3 Results/Orders Lab Results Laboratory Tests Test 10/22/23 13:50 Range/Units White Blood Count 6.4 4.3-11.0 10^3/uL Red Blood Count 4.30 3.80-5.11 10^6/uL Hemoglobin 13.5 11.5-16.0 g/dL Hematocrit 41 35-52 % Mean Corpuscular Volume 96 80-99 fL Mean Corpuscular Hemoglobin 31 25-34 pg Mean Corpuscular Hemoglobin Concent 33 32-36 g/dL Red Cell Distribution Width 11.9 10.0-14.5 % Platelet Count 386 130-400 10^3/uL Mean Platelet Volume 9.1 9.0-12.2 fL Immature Granulocyte % (Auto) 1 % Neutrophils (%) (Auto) 52 42-75 % Lymphocytes (%) (Auto) 40 12-44 % Monocytes (%) (Auto) 6 0-12 % Eosinophils (%) (Auto) 2 0-10 % Basophils (%) (Auto) 0 0-10 % Neutrophils # (Auto) 3.3 1.8-7.8 10^3/uL Lymphocytes # (Auto) 2.5 1.0-4.0 10^3/uL Monocytes # (Auto) 0.4 0.0-1.0 10^3/uL Eosinophils # (Auto) 0.1 0.0-0.3 10^3/uL Basophils # (Auto) 0.0 0.0-0.1 10^3/uL Immature Granulocyte # (Auto) 0.1 0.0-0.1 10^3/uL Sodium Level 139 135-145 MMOL/L Potassium Level 3.9 3.6-5.0 MMOL/L Chloride Level 110 H 98-107 MMOL/L Carbon Dioxide Level 20 L 21-32 MMOL/L Anion Gap 9 5-14 MMOL/L Blood Urea Nitrogen 17 7-18 MG/DL Creatinine 0.98 0.60-1.30 MG/DL Estimat Glomerular Filtration Rate 61 BUN/Creatinine Ratio 17 Glucose Level 122 H 70-105 MG/DL Calcium Level 8.7 8.5-10.1 MG/DL Corrected Calcium 8.9 8.5-10.1 MG/DL Magnesium Level 2.2 1.6-2.4 MG/DL Total Bilirubin 0.3 0.1-1.0 MG/DL Aspartate Amino Transf (AST/SGOT) 19 5-34 U/L Alanine Aminotransferase (ALT/SGPT) 25 0-55 U/L Alkaline Phosphatase 71 40-136 U/L Total Protein 6.0 L 6.4-8.2 GM/DL Albumin 3.7 3.2-4.5 GM/DL My Orders Orders - IRMA RODGERS MD Ondansetron Injection (Ondansetron Inj (10/22/23 14:00) Cbc And Automated Diff (10/22/23 14:00) Comprehensive Metabolic Panel (10/22/23 14:00) Magnesium (10/22/23 14:00) Ed Iv/Invasive Line Start (10/22/23 14:00) Ekg Tracing (10/22/23 14:00) Monitor-Rhythm Ecg Trace Only (10/22/23 14:00) Ondansetron Injection (Ondansetron Inj (10/22/23 14:00) Famotidine Tablet (Famotidine Tablet) (10/22/23 18:30) Medications Given in ED Current Medications Medications Dose Ordered Sig/Tejas Route Start Time Stop Time Status Last Admin Dose Admin Famotidine 20 mg ONCE ONCE PO 10/22/23 18:30 10/22/23 18:31 DC 10/22/23 18:25 20 MG Ondansetron HCl 4 mg ONCE ONCE IVP 10/22/23 14:00 10/22/23 14:01 DC 10/22/23 14:03 4 MG Vital Signs/I&O 10/22/23 10/22/23 10/22/23 13:50 14:00 18:34 Temp 35.0 35.0 Pulse 72 75 Resp 20 20 B/P (MAP) 117/86 (96) 140/76 Pulse Ox 94 94 O2 Delivery Room Air Room Air Room Air Capillary Refill : Blood Pressure Mean: 96 ECG Initial ECG Impression Date: Oct 22, 2023 Initial ECG Impression Time: 14:14 Initial ECG Rate: 61 Initial ECG Rhythm: Normal Sinus Initial ECG Intervals: Normal Initial ECG Impression: Normal Comment Sinus rhythm with no ST elevation or depression. Variable rate. No abnormal intervals or axis deviation. Departure Impression Primary Impression: Allergic reaction Qualified Codes: T78.40XA - Allergy, unspecified, initial encounter Additional Impression: Nausea & vomiting Qualified Codes: R11.2 - Nausea with vomiting, unspecified Disposition: 01 HOME, SELF-CARE Condition: Improved Departure-Patient Inst. Decision time for Depature: 18:21 Referrals: SANKET CHAN MD (PCP/Family) Primary Care Physician Patient Instructions: Allergic Reaction ED, Epinephrine autoinjectors Add. Discharge Instructions: Take Pepcid (famotidine) 20 mg twice daily for a few days to help prevent any rebound reaction. Keep Benadryl (diphenhydramine) available at all times. If you have rebound allergic reaction, take 50 mg promptly. Keep an EpiPen with you. If you have a severe reaction involving swelling of the lips, tongue, or throat, or compromising your airway, take the EpiPen. If you use the EpiPen or have a severe reaction, return to the emergency room immediately or call 911. Contact the dentist office tomorrow to debrief the situation. Have them compare your record from this visit to prior visits to determine if there is an isolated exposure that could explain the reaction. Amoxicillin and lidocaine have been listed as allergies at the hospital. If you discover another agent is responsible, you may remove those allergies from your list later. Call with questions or concerns. All discharge instructions reviewed with patient and/or family. Voiced understanding. Scripts Epinephrine (Epipen 2-Joseph) 0.3 Mg/0.3 Ml Auto.injct 0.3 MG IJ UD, #1 ML Prov: IRMA RODGERS MD 10/22/23 Copy Copies To 1: SANKET CHAN MD, JOSHUA T MD Oct 22, 2023 17:21
[2023-10-22] MEDS ORDERED: EPIN0.3P3 IJ (18:25)
[2023-10-22] MEDS ORDERED: FAMOTIDINE 20 MG TABLET PO ONE (18:30)
[2023-10-22 18:34] VITALS: BP 140/76
== END 2023-10-22 18:34 | disposition home or self-care (01) ==
LOC: EDUNIT# 13:48 → ER 13:49
DX: T78.40XA Allergy, unspecified, initial encounter (principal); R11.2 Nausea with vomiting, unspecified
CPT/HCPCS: 36415; 80053; 83735; 85025; 93005; 93041